=== PATIENT | female | born 2000 | race Two or more races ===

== ENCOUNTER → 2021-08-11 | Outpatient (CLI) | payer BC ==
--- NOTE | 2021-08-11 17:06 | RAD ---
EXAM: CT Head without IV contrast CLINICAL HISTORY: Reason: LEFT SIDED HEADACHE, DIZZINESS, HX MIGRAINE / Spl. Instructions: / History : COMPARISON: None. TECHNIQUE: Routine CT of the head without contrast. PQRS compliance statement - One or more of the following individualized dose reduction techniques wer e utilized for this study: 1. Automated exposure control 2. Adjustment of the mA and/or kV according to patient size 3. Use of iterative reconstruction technique FINDINGS: There is no evidence of hemorrhage, mass or extra-axial fluid collection. Solo-white differentiation is maintained with no evidence of edema. There is no mass effect or shift of the intracranial structures. The ventricles, basilar cisterns and cortical sulci are normal in size and configuration for the isaias ents stated age. The cerebellum and brainstem are unremarkable. The calvarium demonstrates no evidence of fracture or focal lesion. There is normal aeration of the visualized paranasal sinuses and mastoid air cells. The visualized portions of the orbits are normal. IMPRESSION: No evidence for acute intracranial process. Electronically signed by: Ben Clarke MD (08/11/2021 5:04 PM) [email or web address]
== END ==
LOC: RAD 16:42
PROVIDERS: ATTEND Specialist
DX: R51.9 Headache, unspecified (principal)
CPT/HCPCS: 70450